=== PATIENT | male | born 1975 | race Caucasian/White ===

== ENCOUNTER 2021-04-01 18:35 | Emergency (ER) | payer MEDICAID, MEDICARE ==
[~2021-04-01] VITALS: Ht 185.4 cm; Wt 81.8 kg
[2021-04-01 18:57] VITALS: BP 108/71
--- NOTE | 2021-04-01 19:42 | RAD ---
EXAM: 3 views of the right ankle DATE: 04/01/2021 7:32 PM INDICATION: Reason: pain and swelling / Spl. Instructions: / History: COMPARISON: No Prior FINDINGS/ IMPRESSION: No acute fracture or dislocation. IM nail fixation of the distal tibial fracture without definite erasmo dware complication. Moderate associated soft tissue swelling. Subtle lucency medial talar dome likely degenerative. Small posterior calcaneal enthesophyte. Electronically signed by: Julian Pardo MD (04/01/2021 7:40 PM) [facility]
[2021-04-01] MEDS ORDERED: DICL50TA4 PO (20:00)
--- NOTE | 2021-04-01 20:00 | PHYS DOC ---
Past Medical History Past Medical History: Depression, GERD, High Cholesterol Past Surgical History: Other Additional Past Surgical Histo: BACK, RIGHT LEG ALEE & SCREWS Smoking Status: Current Every Day Smoker Alcohol Use: None General Adult EDM: Chief Complaint: FOOT INJURY PAIN HPI: HPI: Patient is a 45 year old male who presents with states a couple years ago he broke his tib-fib and has a alee. He states yesterday he awoke and his lower betancur and ankle is swollen. He states he did not injure it. Rates his pain a 8 out of 10 states it throbbing. He denies any kind of injury or being up on his feet more. Denies any new exercise or activities. Denies fever, shortness of breath, chest pain, abdominal pain, nausea, vomiting, diarrhea, chills, body aches, numbness or tingling, focal weakness. Review of Systems: Review of Systems: Constitutional: Denies fever or chills. [] Eyes: Denies change in visual acuity. [] HENT: Denies nasal congestion or sore throat. [] Respiratory: Denies cough or shortness of breath. [] Cardiovascular: Denies chest pain or + right ankle 2+ edema. [] GI: Denies abdominal pain, nausea, vomiting, bloody stools or diarrhea. [] : Denies dysuria. [] Musculoskeletal: Denies back pain or + right ankle joint pain. [] Integument: Denies rash. [] Neurologic: Denies headache, focal weakness or sensory changes. [] Endocrine: Denies polyuria or polydipsia. [] Lymphatic: Denies swollen glands. [] Psychiatric: Denies depression or anxiety. [] Heart Score: C/O Chest Pain: No Risk Factors: Risk Factors: DM, Current or recent (<one month) smoker, HTN, HLP, family history of CAD, obesity. Risk Scores: Score 0 - 3: 2.5% MACE over next 6 weeks - Discharge Home Score 4 - 6: 20.3% MACE over next 6 weeks - Admit for Clinical Observation Score 7 - 10: 72.7% MACE over next 6 weeks - Early Invasive Strategies Allergies: Allergies: Allergies Coded Allergies Type Severity Reaction Last Updated Verified No Known Drug Allergies 04/01/21 No Physical Exam: PE: Constitutional: Well developed, well nourished, no acute distress, non-toxic appearance. [] HENT: Normocephalic, atraumatic, bilateral external ears normal, oropharynx moist, no oral exudates, nose normal. [] Eyes: PERRLA, EOMI, conjunctiva normal, no discharge. [] Neck: Normal range of motion, no tenderness, supple, no stridor. [] Cardiovascular:Heart rate regular rhythm, no murmur [] Lungs & Thorax: Bilateral breath sounds clear to auscultation [] Abdomen: Bowel sounds normal, soft, no tenderness, no masses, no pulsatile masses. [] Skin: Warm, dry, no erythema, no rash. [] Back: No tenderness, no CVA tenderness. [] Extremities: Right ankle dorsal and posterior tenderness, no cyanosis, no clubbing, right ankle ROM intact limited due to pain, 2+ edema. [] Neurologic: Alert and oriented X 3, normal motor function, normal sensory function, no focal deficits noted. [] Psychologic: Affect normal, judgement normal, mood normal. [] Current Patient Data: Vital Signs: Vital Signs Date Time Temp Pulse Resp B/P (MAP) Pulse Ox O2 Delivery O2 Flow Rate FiO2 04/01/21 18:57 98.0 58 20 108/71 (83) 99 Room Air 98.0 EKG: EKG: [] Radiology/Procedures: Radiology/Procedures: [] Impression: [facility] [address] [place] [address] IMAGING REPORT Signed PATIENT: YARIEL CABELLO ACCOUNT: [id number] : 1975 LOCATION: ER AGE: 45 SEX: M EXAM STATUS: REG ER ORD. PHYSICIAN: KENDRICK BAUMAN APRN REASON: pain and swelling PROCEDURE: ANKLE RIGHT 3V EXAM: 3 views of the right ankle DATE: 04/01/2021 7:32 PM INDICATION: Reason: pain and swelling / Spl. Instructions: / History: COMPARISON: No Prior FINDINGS/ IMPRESSION: No acute fracture or dislocation. IM nail fixation of the distal tibial fracture without definite hardware complication. Moderate associated soft tissue swelling. Subtle lucency medial talar dome likely degenerative. Small posterior calcaneal enthesophyte. Electronically signed by: Julian James MD (04/01/2021 7:40 PM) [facility] DICTATED and SIGNED BY: JULIAN JAMES MD DATE: 04/01/21 [id number] 0 Course & Med Decision Making: Course & Med Decision Making Pertinent Labs and Imaging studies reviewed. (See chart for details) See HPI. Alert and oriented x4. Ambulatory with a steady gait. Speaks in full clear sentences. No focal laxity or deformities. No redness or signs of infection to the joint. Afebrile. Pedal pulse strong and present. Cap refill less than 2 seconds. Skin pink warm and dry. Sensations intact. Patient will be placed in a walking boot. He can follow-up with orthopedics. Nursing staff states patient stated he did not want a walking boot and he refused the Diflucan that I ordered for him and he refused the prescription. He states " that shit dont work". [] Dragon Disclaimer: Dragon Disclaimer: This electronic medical record was generated, in whole or in part, using a voice recognition dictation system. Departure Departure Impression: Primary Impression: Ankle pain, left Qualified Codes: M25.572 - Pain in left ankle and joints of left foot Disposition: HOME / SELF CARE / HOMELESS Condition: STABLE Referrals: NO PCP (PCP) ELIZABETH HOBBS MD Patient Instructions: Arthritis, Degenerative-Brief Additional Instructions: Follow-up with an orthopedic doctor of which I have referred you to. Call as soon as you can. Take medication as prescribed and with food. Use ice and heat to help with any kind of pain. Rest the extremity. Scripts Diclofenac Sodium (DICLOFENAC SODIUM) 50 Mg Tablet. 1 TAB PO BID, #15 TAB Prov: KENDRICK BAUMAN APRN 04/01/21 KENDRICK BAUMAN APRN Apr 01, 2021 20:00
[2021-04-01] MEDS ORDERED: DICLOFENAC SODIUM 25 MG TABLET.DR PO ONE (20:15)
== END 2021-04-01 20:15 | disposition home or self-care (01) ==
LOC: ER 18:35
DX: M25.571 Pain in right ankle and joints of right foot (principal); K21.9 Gastro-esophageal reflux disease without esophagitis; E78.00 Pure hypercholesterolemia, unspecified; F17.200 Nicotine dependence, unspecified, uncomplicated
CPT/HCPCS: 12014; 73610; 99282; 99284-25